=== PATIENT | male | born 1955 | race Caucasian/White ===

== ENCOUNTER → 2025-03-15 12:45 | Outpatient (CLI) | payer MEDICARE, SELFPAY ==
--- NOTE | 2025-03-15 12:50 | DI.MRI.S_ITS ---
PROCEDURE: MR LUMBAR SPINE WO CON INDICATIONS: Radiculopathy lumbar region TECHNIQUE: Noncontrast sagittal T1 spin echo and T2 fast echo, sagittal STIR, and T2 fast spin echo through the lumbar spine. In cases with scoliosis, additional coronal T2 fast spin echo may be performed. COMPARISON: None. FINDINGS: Image quality: Excellent Mild levoscoliosis lumbar spine, centered at L3. Multiple small active Schmorl's node, involving the inferior endplate of L3, the superior and inferior endplate of L4, with associated marrow edema. Mild fibrovascular end plate change at L2-3. Vertebral body height and lumbar spine are well maintained. Multilevel disc bulge and disc desiccation. Conus terminates at the level of L1-2, and is unremarkable. Right neural foraminal stenosis: Mild at L3-4, L4-5. Left neural foraminal stenosis: None. Axial images: T12-L1: No central canal stenosis. L1-2: Mild bilateral facet arthropathy. No central canal stenosis. L2-3: Mild bilateral facet arthropathy. No central canal stenosis. L3-4: Moderate right, mild left facet arthropathy. Ligament flava hypertrophy on the right. No central canal stenosis. L4-5: Disc bulge. Mild bilateral facet arthropathy. Mild central canal stenosis. Epidural lipomatosis. L5-S1: Mild bilateral facet arthropathy. Mild disc bulge. No central canal stenosis. Visualized sacrum is intact. IMPRESSION: 1. Multilevel degenerative changes, most pronounced at L4-5, where there is mild central canal stenosis and mild right neural foraminal stenosis. 2. Multilevel active Schmorl's node as described above. Dictated by: Kassandra Stacy M.D. on 03/16/2025 at 14:01 Approved by: Kassandra Stacy M.D. on 03/16/2025 at 14:10
== END ==
LOC: MRI 12:48
PROVIDERS: PCP Physician Assistant; Referring Provider Physician Assistant; Visit Provider Physician Assistant
DX: M47.26 Other spondylosis with radiculopathy, lumbar region (principal); M47.27 Other spondylosis with radiculopathy, lumbosacral region; M51.16 Intervertebral disc disorders with radiculopathy, lumbar region; M51.17 Intervertebral disc disorders with radiculopathy, lumbosacral region; M48.061 Spinal stenosis, lumbar region without neurogenic claudication; M51.46 Schmorl's nodes, lumbar region
CPT/HCPCS: 72148